=== PATIENT | male | born 1975 | race Caucasian/White ===

== ENCOUNTER 2018-01-02 11:00 | Emergency (ER) | payer OTHER ==
--- NOTE | 2018-01-02 12:06 | RAD ---
LEFT LEG TWO VIEWS: HISTORY: Fall. Left leg pain. FINDINGS: The left tibia and fibula appear intact. POS: NESTOR
== END 2018-01-02 11:54 | disposition home or self-care (01) ==
LOC: ERS 11:00
DX: S86.911A Strain of unspecified muscle(s) and tendon(s) at lower leg level, right leg, initial encounter (principal); E03.9 Hypothyroidism, unspecified; I10 Essential (primary) hypertension; X50.1XXA Overexertion from prolonged static or awkward postures, initial encounter